=== PATIENT | female | born 2005 | race Two or more races ===

== ENCOUNTER 2025-06-10 13:53 | Emergency (ER) | payer MEDICAID, SELFPAY ==
[2025-06-10 14:26] VITALS: BP 127/83; PULSE 98; RESP 18; TEMP 37.2; O2SAT 96; BMI 36.1
--- NOTE | 2025-06-10 14:27 | XR_ITS ---
EXAMINATION: Lumbar spine 3 views TECHNIQUE: AP lateral coned lateral lower lumbar spine 3 views Date and time: June 10, 2025, 1627 hours INDICATIONS: Lower back pain beginning 1 month ago. FINDINGS: Satisfactory alignment lumbar vertebral bodies No lumbar fracture Mild to moderate disc narrowing L5-S1 No spondylolisthesis IMPRESSION: Mild to moderate disc narrowing L5-S1
--- NOTE | 2025-06-10 14:36 | PD.EDBACK ---
ED Back Injury Pain RME/HPI General Chief Complaint: Back Pain/Injury Stated Complaint: SHARP PAIN LOWER BACK 01/19 Time Seen by Provider: 06/10/25 13:58 Source: patient Arrival date/time: 06/10/25 13:53 19-year-old female with no known medical history presents to the emergency room with a chief complaint of 8 out of 10 lower lumbar back pain x 1 month Mode of arrival: ambulatory Limitations: no limitations Related Data Previous Rx's ?Medication ?Instructions ?Recorded ibuprofen 600 mg tablet 600 mg PO QID PRN pain #20 tabs 11/26/22 Allergies Allergy/AdvReac Type Severity Reaction Status Date / Time amoxicillin Allergy Mild Rash Verified 06/10/25 13:56 Review of Systems Review of Systems Systems Reviewed: All systems reviewed, normal except as documented Constitutional Constitutional: Reports system reviewed and no additional complaints, except as documented, Denies fatigue, Denies fever(s), Denies headache(s) and Denies weakness Eyes Eyes: Reports system reviewed and no additional complaints, except as documented, Denies blurry vision and Denies change in vision ENT Ears, Nose, Mouth, and Throat: Reports system reviewed and no additional complaints, except as documented, Denies otalgia, Denies headache(s), Denies nasal congestion, Denies throat swelling and Denies vertigo Cardiovascular Cardiovascular: Reports system reviewed and no additional complaints, except as documented, Denies chest pain, Denies dyspnea and Denies dyspnea on exertion Respiratory Respiratory: Reports system reviewed and no additional complaints, except as documented, Denies chest congestion, Denies cough, Denies dyspnea, Denies dyspnea on exertion and Denies wheezing Gastrointestinal Gastrointestinal: Reports system reviewed and no additional complaints, except as documented, Denies abdominal pain, Denies cramping, Denies nausea and Denies vomiting Genitourinary Genitourinary: Reports system reviewed and no additional complaints, except as documented Musculoskeletal Musculoskeletal: Reports system reviewed and no additional complaints, except as documented and Reports back pain Integumentary/Breasts Skin/Breast: Reports system reviewed and no additional complaints, except as documented and Denies wounds Neurologic Neurologic: Reports system reviewed and no additional complaints, except as documented, Denies confusion, Denies headache(s), Denies lack of coordination, Denies vertigo and Denies weakness Psychiatric Psychiatric: Reports system reviewed and no additional complaints, except as documented, Denies anxiety, Denies confusion, Denies depression, Denies paranoia, Denies suicidal ideation and Denies tactile hallucinations Endocrine Endocrine: Reports system reviewed and no additional complaints, except as documented and Denies fatigue Hematologic/Lymphatic Hematologic/Lymphatic: Reports system reviewed and no additional complaints, except as documented and Denies lymphadenopathy Allergic/Immunologic Allergic/Immunologic: Reports system reviewed and no additional complaints, except as documented, Denies throat swelling, Denies urticaria and Denies wheezing Past Medical History Social History SMOKING STATUS: Never smoker ED Exam General Limitations: Present no limitations General appearance: Present alert and in no apparent distress Head Head exam: Present atraumatic Eye Eye exam: Present normal appearance, PERRL and EOMI ENT ENT exam: Present normal exam, normal oropharynx and mucous membranes moist Neck Neck exam: Present normal inspection, full ROM and trachea midline Chest Chest inspection: Present normal inspection and symmetric chest wall rise Respiratory Respiratory exam: Present normal lung sounds bilaterally Cardiovascular Cardiovascular exam: Present regular rate, normal rhythm and normal heart sounds Abdominal Exam Abdominal exam: Present soft and normal bowel sounds Extremities Exam Extremities exam: Present normal inspection and full ROM Back Exam Back exam: Present normal inspection, full ROM and vertebral tenderness Back 1 view image:  1. Lumbar back pain with palpation Neurological Exam Neurological exam: Present alert, oriented X3 and CN II-XII intact Psychiatric Psychiatric exam: Present normal affect and normal mood Skin Skin exam: Present warm, dry, intact and normal color Course Quality Measures none Orders Category Date Time Status XR lumbar spine 2-3V Stat Exams 06/10/25 14:27 Ordered HCG Qualitative,Urine Stat Lab 06/10/25 14:45 Completed Vital Signs Vital signs: Vital Signs Temperature 99 F 06/10/25 14:26 Pulse Rate 98 06/10/25 14:26 Respiratory Rate 18 06/10/25 14:26 Blood Pressure 127/83 06/10/25 14:26 Pulse Oximetry (%) 96 06/10/25 14:26 Oxygen Delivery Method Room Air 06/10/25 14:26 Back Pain / Injury MDM Narrative MDM Narrative:: 19-year-old female with no known medical history presents to the emergency room with a chief complaint of 8 out of 10 lower lumbar back pain x 1 month Patient is hemodynamically stable and in no apparent distress Patient denies any trauma any lifting anything heavy or any twisting motion Physical examination shows tenderness with palpation of the lumbar area of the patient's spine. There is no CVA tenderness with palpation. The patient denies any saddle anesthesia or any loss of bowel or bladder function X-ray was negative for any acute findings Patient was discharged and educated to follow-up with primary care provider in the next 24 to 48 hours and return to the emergency room for any evidence of worsening signs or symptoms Patient data External records reviewed:: [facility] previous records Clinical information provided by:: patient Social determinants that could affect healthcare access:: none Patient has the following chronic illnesses:: No chronic illness How is presenting disease/condition affected by chronic disease/condition?: no chronic disease Evaluation data The following diagnostics were reviewed and interpreted by me:: lab results and radiology exam(s) Lab and/or radiology exams considered but not ordered:: Labs and radiology exams considered and ordered Interpretation Summary: X-ray lumbar spine- Medications / Prescriptions Medications or Prescriptions considered but not ordered:: No medication given Medication administrations:: No medication given Consultations Consultation(s) initiated? (list below): No Diagnosis Differential diagnosis back pain/injury: lumbar radiculopathy, strain of lumbar region and discitis Most likely diagnosis given after review of the tests above:: Strain of lumbar region Admission Indicated Admission indicated?: not indicated Admission Request Was there a request for admission?: No Disposition Plan Disposition Plan: Discharge Discharge Attestation Discharge Attestation: The patient and all family members were given an opportunity to ask questions and understood the discharge instructions. Discharge instructions specifically effects, indications for sooner follow up or return to the emergency department, and the expected course of current diagnosis. Patient condition: Stable Discharge Plan Prescriptions/Referrals Prescriptions/Med Rec: No Action ibuprofen 600 mg tablet 600 mg PO QID PRN (Reason: pain) Qty: 20 0RF Referrals: Jose Blanchard MD [Primary Care Provider, Family Practice] - In 1 week Patient/Caregiver Discharge Instructions Print Language: Prydeinig
[2025-06-10 16:14] LABS: HCG Qualitative,Urine Negative
--- NOTE | 2025-06-10 16:38 | PD.EDRME ---
Rapid Medical Screening Exam RME Arrival date/time: 06/10/25 13:53 19-year-old female with no known medical history presents to the emergency room with a chief complaint of 8 out of 10 lower lumbar back pain x 1 month Chief Complaint: Back Pain/Injury Time Seen by Provider: 06/10/25 13:58 Vital signs: Vital Signs Temperature 99 F 06/10/25 14:26 Pulse Rate 98 06/10/25 14:26 Respiratory Rate 18 06/10/25 14:26 Blood Pressure 127/83 06/10/25 14:26 Pulse Oximetry (%) 96 06/10/25 14:26 Oxygen Delivery Method Room Air 06/10/25 14:26 Vital signs reviewed by provider: Yes Exam: 8 out of 10 lumbar back pain with palpation No CVA tenderness Clear bilateral lung sounds Clinical Impression: Lumbar back
--- NOTE | 2025-06-10 17:10 | EDNOTE_ITS ---
ED Back Injury Pain RME/HPI General Chief Complaint: Back Pain/Injury Stated Complaint: SHARP PAIN LOWER BACK /10 Time Seen by Provider: 06/10/25 13:58 Source: patient Arrival date/time: 06/10/25 13:53 19-year-old female with no known medical history presents to the emergency room with a chief complaint of 8 out of 10 lower lumbar back pain x 1 month Mode of arrival: ambulatory Limitations: no limitations RME / HPI RME / HPI Narrative: 06/10/25 13:53 19-year-old female with no known medical history presents to the emergency room with a chief complaint of 8 out of 10 lower lumbar back pain x 1 month Exam: 8 out of 10 lumbar back pain with palpation No CVA tenderness Clear bilateral lung sounds Impression: Lumbar back Related Data Previous Rx's ?Medication ?Instructions ?Recorded ibuprofen 600 mg tablet 600 mg PO QID PRN pain #20 t abs 11/26/22 ibuprofen 800 mg tablet 800 mg PO Q8H #30 tabs 06/10 Allergies Allergy/AdvReac Type Severity Reaction Status Date / Time amoxicillin Allergy Mild Rash Verified 06/10/25 13:56 Review of Systems Review of Systems Systems Reviewed: All systems reviewed, normal except as documented Constitutional Constitutional: Reports system reviewed and no additional complaints, except as documented, Denies fatigue, Denies fever(s), Denies headache(s) and Denies weakness Eyes Eyes: Reports system reviewed and no additional complaints, except as documented, Denies blurry vision and Denies change in vision ENT Ears, Nose, Mouth, and Throat: Reports system reviewed and no additional complaints, except as documented, Denies otalgia, Denies headache(s), Denies nasal congestion, Denies throat swelling and Denies vertigo Cardiovascular Cardiovascular: Reports system reviewed and no additional complaints, except as documented, Denies chest pain, Denies dyspnea and Denies dyspnea on exertion Respiratory Respiratory: Reports system reviewed and no additional complaints, except as documented, Denies chest congestion, Denies cough, Denies dyspnea, Denies dyspnea on exertion and Denies wheezing Gastrointestinal Gastrointestinal: Reports system reviewed and no additional complaints, except as documented, Denies abdominal pain, Denies cramping, Denies nausea and Denies vomiting Genitourinary Genitourinary: Reports system reviewed and no additional complaints, except as documented Musculoskeletal Musculoskeletal: Reports system reviewed and no additional complaints, except as documented and Reports back pain Integumentary/Breasts Skin/Breast: Reports system reviewed and no additional complaints, except as documented and Denies wounds Neurologic Neurologic: Reports system reviewed and no additional complaints, except as documented, Denies confusion, Denies headache(s), Denies lack of coordination, Denies vertigo and Denies weakness Psychiatric Psychiatric: Reports system reviewed and no additional complaints, except as documented, Denies anxiety, Denies confusion, Denies depression, Denies paranoia, Denies suicidal ideation and Denies tactile hallucinations Endocrine Endocrine: Reports system reviewed and no additional complaints, except as documented and Denies fatigue Hematologic/Lymphatic Hematologic/Lymphatic: Reports system reviewed and no additional complaints, except as documented and Denies lymphadenopathy Allergic/Immunologic Allergic/Immunologic: Reports system reviewed and no additional complaints, except as documented, Denies throat swelling, Denies urticaria and Denies wheezing Past Medical History Social History SMOKING STATUS: Never smoker ED Exam General Limitations: Present no limitations General appearance: Present alert and in no apparent distress Head Head exam: Present atraumatic Eye Eye exam: Present normal appearance, PERRL and EOMI ENT ENT exam: Present normal exam, normal oropharynx and mucous membranes moist Neck Neck exam: Present normal inspection, full ROM and trachea midline Chest Chest inspection: Present normal inspection and symmetric chest wall rise Respiratory Respiratory exam: Present normal lung sounds bilaterally Cardiovascular Cardiovascular exam: Present regular rate, normal rhythm and normal heart sounds Abdominal Exam Abdominal exam: Present soft and normal bowel sounds Extremities Exam Extremities exam: Present normal inspection and full ROM Back Exam Back exam: Present normal inspection, full ROM, tenderness and vertebral tenderness; Absent CVA tenderness (R), CVA tenderness (L), sciatic notch tenderness (R) or sciatic notch tenderness (L) Back 1 view image: 2 1. Lumbar back pain with palpation Neurological Exam Neurological exam: Present alert, oriented X3 and CN II-XII intact Psychiatric Psychiatric exam: Present normal affect and normal mood Skin Skin exam: Present warm, dry, intact and normal color Course Quality Measures none Orders Category Date Time Status XR lumbar spine 2-3V Stat Exams 06/10/25 14:27 Completed HCG Qualitative,Urine Stat Lab 06/10/25 14:45 Completed Vital Signs Vital signs: Vital Signs Temperature 99 F 06/10/25 14:26 Pulse Rate 98 06/10/25 14:26 Respiratory Rate 18 06/10/25 14:26 Blood Pressure 127/83 06/10/25 14:26 Pulse Oximetry (%) 96 06/10/25 14:26 Oxygen Delivery Method Room Air 06/10/25 14:26 Back Pain / Injury MDM Narrative MDM Narrative:: 19-year-old female with no known medical history presents to the emergency room with a chief complaint of 8 out of 10 lower lumbar back pain x 1 month Patient is hemodynamically stable and in no apparent distress Physical examination shows lumbar back pain with palpation. There is no CVA tenderness. There is no loss of bowel or bladder function. There is no saddle anesthesia. There is no numbness to the lower extremities. The patient is ambulating. Patient was discharged and educated to follow-up with primary care provider in the next 24 to 48 hours and return to the emergency room for any evidence of worsening signs or symptoms Patient data External records reviewed:: [facility] previous records Clinical information provided by:: patient Social determinants that could affect healthcare access:: none Patient has the following chronic illnesses:: No chronic illness How is presenting disease/condition affected by chronic disease/condition?: no chronic disease Evaluation data The following diagnostics were reviewed and interpreted by me:: lab results and radiology exam(s) Lab and/or radiology exams considered but not ordered:: Labs and radiology exams considered and ordered Interpretation Summary: [id number]: Satisfactory alignment lumbar vertebral bodies No lumbar fracture Mild to moderate disc narrowing L5-S1 No spondylolisthesis IMPRESSION: Mild to moderate disc narrowing L5-S1 Medications / Prescriptions Medications or Prescriptions considered but not ordered:: No medication given Medication administrations:: Rx given Consultations Consultation(s) initiated? (list below): No Diagnosis Differential diagnosis back pain/injury: lumbar radiculopathy, strain of lumbar region and thoracic back pain Most likely diagnosis given after review of the tests above:: Strain of lumbar region Admission Indicated Admission indicated?: not indicated Admission Request Was there a request for admission?: No Disposition Plan Disposition Plan: Discharge Discharge Attestation Discharge Attestation: The patient and all family members were given an opportunity to ask questions and understood the discharge instructions. Discharge instructions specifically effects, indications for sooner follow up or return to the emergency department, and the expected course of current diagnosis. Patient condition: Stable Discharge Plan Plan Patient Disposition: HOME (Self Care) Discharge Disposition comment: Stable Prescriptions/Referrals Prescriptions/Med Rec: New ibuprofen 800 mg tablet 800 mg PO Q8H Qty: 30 0RF No Action ibuprofen 600 mg tablet 600 mg PO QID PRN (Reason: pain) Qty: 20 0RF Referrals: Jose Blanchard MD [Primary Care Provider, Family Practice] - In 1 week Problem List Clinical Impression: Strain of lumbar region Patient/Caregiver Discharge Instructions Education Materials: ED Back Sprain/Strain Additional Instructions: Please follow-up with your primary care provider in the next 24 to 48 hours X-rays of your lumbar spine were completed and were negative for any acute findings For any evidence of worsening signs or symptoms return to the emergency room immediately Print Language: Danish Stand Alone Forms: Sally Award Info., Work/School Release, Patient Portal Info Letter PA/SNOW REMOVER Supervising Physician PA/MAGDA Supervising Physician: Dr. Frederick
[2025-06-10 19:39] VITALS: BP 118/70; PULSE 76; RESP 16; TEMP 36.8; O2SAT 99
== END 2025-06-10 19:40 | disposition home or self-care (01) ==
PROVIDERS: Nurse Practitioner Family; Emergency Provider Family Medicine; PCP Family Medicine
DX: S39.012A Strain of muscle, fascia and tendon of lower back, initial encounter (principal); M48.07 Spinal stenosis, lumbosacral region; X58.XXXA Exposure to other specified factors, initial encounter
CPT/HCPCS: 72100; 81025; 99283